=== PATIENT | female | born 1980 | race Caucasian/White ===

== ENCOUNTER 2016-07-28 14:18 | Emergency (ER) | payer OTHER ==
[2016-07-28 15:37] LABS: HEMOGLOBIN 12.2 gm/dl (12.3-15.3); RED BLOOD COUNT 4.36 M/UL (4.00-5.10); WHITE BLOOD COUNT 6.8 K/UL (4.5-11.0)
[2016-07-28 15:41] LABS: BUN/CREATININE RATIO 17 (0-10)
== END 2016-07-28 19:50 | disposition home or self-care (01) ==
LOC: ER1 14:18
PROVIDERS: Preventive Medicine Occupational Medicine
DX: K58.9 Irritable bowel syndrome, unspecified (principal); Z88.5 Allergy status to narcotic agent; Z79.899 Other long term (current) drug therapy
CPT/HCPCS: 36415; 80053; 81001; 85025; 86140; 96374; 96375; 96376; 99284; J2405; J7030; J7050; Q9962

== ENCOUNTER 2020-02-19 11:04 | Emergency (ER) | payer OTHER ==
[~2020-02-19 11:04] MED LIST: DELSYM30 MG/5 ML PO; FLEXERIL 10 MG10 MG PO; IBUPROFEN600 MG PO; K-DUR TAB 20 M20 MEQ PO; LODINE CAP 300300 MG PO; ROBITUSSIN30 MG/5 ML PO; TESSALON PERLE100 MG PO; ZOFRAN ODT 4 MG4 MG PO; ZOFRAN4 MG PO; ZYRTEC10 MG PO
[2020-02-19 11:27] LABS: HEMOGLOBIN 13.9 gm/dl (12.3-15.3); RED BLOOD COUNT 5.03 M/UL (4.00-5.10); WHITE BLOOD COUNT 10.3 K/UL (4.5-11.0)
[2020-02-19 12:13] LABS: BUN/CREATININE RATIO 16 (0-10)
[2020-02-19] MEDS ORDERED: K-DUR TAB 10 M10 MEQ PO (14:54)
[2020-02-19] MEDS ORDERED: ZOFRAN4 MG PO (14:54)
[2020-02-19] MEDS ORDERED: CEFUROXIME500 MG PO (14:54)
== END 2020-02-19 15:15 | disposition home or self-care (01) ==
LOC: ER1 11:04
PROVIDERS: Emergency Medicine
DX: N39.0 Urinary tract infection, site not specified (principal); E87.6 Hypokalemia; R10.12 Left upper quadrant pain; R63.0 Anorexia; F41.9 Anxiety disorder, unspecified; F32.9 Major depressive disorder, single episode, unspecified; Z88.2 Allergy status to sulfonamides; Z90.49 Acquired absence of other specified parts of digestive tract
CPT/HCPCS: 80053; 81001; 82150; 83690; 84703; 85025; 96374; 96375; 99284; J2270; J2405; Q9967

== ENCOUNTER → 2020-02-20 | Outpatient (CLI) | payer OTHER ==
[~2020-02-20] MED LIST changes: +ANTIVERT 12.512.5 MG PO; +BMP Blood Test; +CEFUROXIME500 MG PO; +K-DUR TAB 10 M10 MEQ PO; +ZOFRAN ODT 4 MG4 MG GT
== END ==
LOC: US 13:16
DX: R10.2 Pelvic and perineal pain (principal)
CPT/HCPCS: 76830

== ENCOUNTER 2020-03-24 01:20 | Emergency (ER) | payer OTHER ==
[~2020-03-24 01:20] MED LIST changes: -ANTIVERT 12.512.5 MG PO; -BMP Blood Test; -ZOFRAN ODT 4 MG4 MG GT
[2020-03-24 02:56] LABS: HEMOGLOBIN 14.3 gm/dl (12.3-15.3); RED BLOOD COUNT 5.02 M/UL (4.00-5.10); WHITE BLOOD COUNT 15.6 K/UL (4.5-11.0)
[2020-03-24 03:25] LABS: BUN/CREATININE RATIO 21 (0-10)
[2020-03-24 06:50] LABS: BUN/CREATININE RATIO 22 (0-10)
[2020-03-24] MEDS ORDERED: K-DUR TAB 20 M20 MEQ PO (07:01)
[2020-03-24] MEDS ORDERED: BMP Blood Test (07:01)
[2020-03-24] MEDS ORDERED: ZOFRAN ODT 4 MG4 MG GT (07:05)
[2020-03-24] MEDS ORDERED: ANTIVERT 12.512.5 MG PO (07:05)
== END 2020-03-24 07:30 | disposition home or self-care (01) ==
LOC: ER1 01:20
PROVIDERS: Family Medicine
DX: R11.2 Nausea with vomiting, unspecified (principal); E87.6 Hypokalemia; Z20.822 Contact with and (suspected) exposure to COVID-19
CPT/HCPCS: 70450; 71045; 80048; 80053; 81001; 82550; 82553; 83874; 84484; 85025; 85610; 93005; 96365; 96366; 96375; 99284; J2405; J3480; U0002

== ENCOUNTER 2020-03-29 17:41 | Emergency (ER) | payer OTHER ==
[~2020-03-29 17:41] MED LIST changes: +ANTIVERT 12.512.5 MG PO; +BMP Blood Test; +ZOFRAN ODT 4 MG4 MG GT
[2020-03-30] MEDS ORDERED: ZOFRAN4 MG PO (10:33)
[2020-03-30] MEDS ORDERED: K-DUR TAB 10 M10 MEQ PO (10:33)
== END 2020-03-29 18:19 | disposition left against medical advice (07) ==
LOC: ER1 17:41
DX: R42 Dizziness and giddiness (principal); R11.0 Nausea; R43.8 Other disturbances of smell and taste; Z53.21 Procedure and treatment not carried out due to patient leaving prior to being seen by health care provider

== ENCOUNTER 2020-03-29 20:22 | Emergency (ER) | payer OTHER ==
[2020-03-30 03:52] LABS: BUN/CREATININE RATIO 16 (0-10)
[2020-03-30 04:00] LABS: RED BLOOD COUNT 4.66 M/UL (4.00-5.10); WHITE BLOOD COUNT 11.3 K/UL (4.5-11.0)
[2020-03-30] MEDS ORDERED: ZOFRAN4 MG PO (10:33)
[2020-03-30] MEDS ORDERED: K-DUR TAB 10 M10 MEQ PO (10:33)
== END 2020-03-30 10:57 | disposition home or self-care (01) ==
LOC: ER1 20:22
PROVIDERS: Physician Assistant
DX: R11.2 Nausea with vomiting, unspecified (principal); E87.6 Hypokalemia; R42 Dizziness and giddiness; R43.8 Other disturbances of smell and taste; Z87.01 Personal history of pneumonia (recurrent); Z88.2 Allergy status to sulfonamides; Z20.822 Contact with and (suspected) exposure to COVID-19
CPT/HCPCS: 0240U; 71045; 80053; 82550; 82553; 83874; 83880; 84484; 85025; 85610; 85730; 93005; 99284

== ENCOUNTER 2020-05-31 21:32 | Emergency (ER) | payer OTHER | END 2020-05-31 23:59 | disposition left against medical advice (07) | LOC: ER1 21:32 | DX: Z53.21 Procedure and treatment not carried out due to patient leaving prior to being seen by health care provider (principal) ==

== ENCOUNTER 2021-05-22 15:24 | Inpatient (IN) | payer OTHER ==
[~2021-05-22] VITALS: Ht 162.6 cm; Wt 101.6 kg
[2021-05-22 17:34] LABS: HEMOGLOBIN 13.7 gm/dl (12.3-15.3); RED BLOOD COUNT 4.77 M/UL (4.00-5.10); WHITE BLOOD COUNT 10.8 K/UL (4.5-11.0)
[2021-05-23] MEDS ORDERED: AMITRIPTYLINE100 MG PO (01:18)
[2021-05-23] MEDS ORDERED: BUSPIRONE HCL30 MG PO (01:18)
[2021-05-23] MEDS ORDERED: GABAPENTIN300 MG PO ×2 (01:19→09:14)
[2021-05-23] MEDS ORDERED: TRAMADOL HCL50 MG PO (01:20)
[2021-05-23] MEDS ORDERED: CYCLOBENZAPRINE10 MG PO (01:20)
[2021-05-23] MEDS ORDERED: FAMOTIDINE20 MG PO (01:21)
[2021-05-23] MEDS ORDERED: CHLORTHALIDONE50 MG PO (01:21)
[2021-05-23] MEDS ORDERED: PROZAC40 MG PO (01:24)
[2021-05-23 08:46] LABS: BUN/CREATININE RATIO 13 (0-10)
[2021-05-23] MEDS ORDERED: PROAIR HFA8.5 GM INH (09:15)
[2021-05-23] MEDS ORDERED: OMEPRAZOLE40 MG PO (09:16)
[2021-05-23] MEDS ORDERED: HYDROXYZINE HCL50 MG PO (09:16)
[2021-05-23] MEDS ORDERED: IBUPROFEN800 MG PO (09:17)
[2021-05-23] MEDS ORDERED: IMITREX50 MG PO (09:18)
[2021-05-23] MEDS ORDERED: LIPITOR10 MG PO (09:18)
[2021-05-23] MEDS ORDERED: CETIRIZINE HCL10 MG PO (09:19)
[2021-05-23] MEDS ORDERED: LACTULOSE10 GM/15 M PO (09:20)
[2021-05-23] MEDS ORDERED: AYR SALINE50 ML (09:21)
[2021-05-23 14:27] LABS: BUN/CREATININE RATIO 11 (0-10)
[2021-05-24 09:08] LABS: BUN/CREATININE RATIO 10 (0-10)
[2021-05-24] MEDS ORDERED: POLYETHYLENE GL17 GM PO (13:41)
[2021-05-24] MEDS ORDERED: STIMULANT LAXA1 EACH PO (13:41)
== END 2021-05-24 15:41 | disposition home or self-care (01) | DRG 641 ==
LOC: ER1 15:24 → CDU 20:35 → PROG CARE 20:35
PROVIDERS: Internal Medicine Infectious Disease; Physician Assistant Medical; ADMIT Internal Medicine
DX: E87.6 Hypokalemia (principal); F11.20 Opioid dependence, uncomplicated; I95.2 Hypotension due to drugs; E86.0 Dehydration; T50.2X5A Adverse effect of carbonic-anhydrase inhibitors, benzothiadiazides and other diuretics, initial encounter; Z20.822 Contact with and (suspected) exposure to COVID-19; G43.909 Migraine, unspecified, not intractable, without status migrainosus; R29.6 Repeated falls; H53.149 Visual discomfort, unspecified; K21.9 Gastro-esophageal reflux disease without esophagitis; E66.9 Obesity, unspecified; F41.9 Anxiety disorder, unspecified; F32.A Depression, unspecified; E78.5 Hyperlipidemia, unspecified; M51.36 Other intervertebral disc degeneration, lumbar region; I10 Essential (primary) hypertension; K59.00 Constipation, unspecified; G89.29 Other chronic pain; K58.9 Irritable bowel syndrome, unspecified; Z68.38 Body mass index [BMI] 38.0-38.9, adult; Z90.49 Acquired absence of other specified parts of digestive tract; Z98.890 Other specified postprocedural states; Z83.3 Family history of diabetes mellitus; Z88.2 Allergy status to sulfonamides
CPT/HCPCS: 36415; 36600; 70450; 71045; 80048; 80053; 80307; 81001; 82140; 82436; 82550; 82553; 82607; 82746; 82803; 83735; 83935; 84100; 84132; 84133; 84300; 84439; 84443; 84484; 84703; 85025; 85610; 86140; 93005; 96374; 97162; 97165; 97530; 99285; J1650; J2405; J3480; J7030; U0002

== ENCOUNTER 2021-06-12 15:54 | Inpatient (IN) | payer OTHER ==
[~2021-06-12] VITALS: Ht 162.6 cm; Wt 105.4 kg
[~2021-06-12 15:54] MED LIST changes: +AMITRIPTYLINE100 MG PO; +AYR SALINE50 ML; +BUSPIRONE HCL30 MG PO; +CETIRIZINE HCL10 MG PO; +CHLORTHALIDONE50 MG PO; +CYCLOBENZAPRINE10 MG PO; +FAMOTIDINE20 MG PO; +GABAPENTIN300 MG PO; +HYDROXYZINE HCL50 MG PO; +IBUPROFEN800 MG PO; +IMITREX50 MG PO; +LACTULOSE10 GM/15 M PO; +LIPITOR10 MG PO; +OMEPRAZOLE40 MG PO; +POLYETHYLENE GL17 GM PO; +PROAIR HFA8.5 GM INH; +PROZAC40 MG PO; +STIMULANT LAXA1 EACH PO; +TRAMADOL HCL50 MG PO
[2021-06-12 16:36] LABS: HEMOGLOBIN 14.5 gm/dl (12.3-15.3); RED BLOOD COUNT 5.08 M/UL (4.00-5.10); WHITE BLOOD COUNT 15.7 K/UL (4.5-11.0)
[2021-06-13 06:21] LABS: HEMOGLOBIN 13.1 gm/dl (12.3-15.3); RED BLOOD COUNT 4.66 M/UL (4.00-5.10)
[2021-06-13 06:28] LABS: WHITE BLOOD COUNT 8.3 K/UL (4.5-11.0)
[2021-06-13 06:46] LABS: BUN/CREATININE RATIO 17 (0-10)
[2021-06-13] MEDS ORDERED: AMITRIPTYLINE100 MG PO (11:56)
[2021-06-13] MEDS ORDERED: CHLORTHALIDONE50 MG PO (11:57)
[2021-06-13] MEDS ORDERED: CYCLOBENZAPRINE10 MG PO (11:58)
[2021-06-13] MEDS ORDERED: TRAMADOL HCL50 MG PO (20:00)
[2021-06-13] MEDS ORDERED: BUSPIRONE HCL30 MG PO (20:01)
[2021-06-14 03:42] LABS: HEMOGLOBIN 12.4 gm/dl (12.3-15.3); RED BLOOD COUNT 4.37 M/UL (4.00-5.10); WHITE BLOOD COUNT 8.9 K/UL (4.5-11.0)
[2021-06-15 11:09] LABS: HEMOGLOBIN 13.2 gm/dl (12.3-15.3); RED BLOOD COUNT 4.6 M/UL (4.00-5.10); WHITE BLOOD COUNT 9.1 K/UL (4.5-11.0)
[2021-06-15 11:31] LABS: BUN/CREATININE RATIO 13 (0-10)
[2021-06-15 16:50] LABS: BUN/CREATININE RATIO 12 (0-10)
[2021-06-15 22:54] LABS: ADENOVIRUS F 40/41 Not Detected (Negative); ASTROVIRUS Not Detected (Negative); CAMPYLOBACTER Not Detected (Negative); CRYPTOSPORIDIUM Not Detected (Negative); E.COLI 0157 Not Detected (Negative); ENTAMOEBA HISTOLYTICA Not Detected (Negative); ENTEROAGGREGATIVE E.COLI (EAEC Not Detected (Negative); ENTEROPATHOGENIC E.COLI (EPEC) Not Detected (Negative); ENTEROTOXIGENIC E.COLI (ETEC) Not Detected (Negative); GIARDIA LAMBLIA Not Detected (Negative); NOROVIRUS GI/GII Not Detected (Negative); PLESIOMONAS SHIGELLOIDES Not Detected (Negative); ROTOVIRUS A Not Detected (Negative); SALMONELLA Not Detected (Negative); SAPOVIRUS Not Detected (Negative); SHIG/ENTEROINVAS.ECOLI (EIEC) Not Detected (Negative); SHIGA-LIK TOX.PRO.E.COLI (STEC Not Detected (Negative); VIBRIO Not Detected (Negative); VIBRIO CHOLERAE Not Detected (Negative); YERSINIA ENTEROCOLITICA Not Detected (Negative)
[2021-06-16 08:31] LABS: CLOSTRIDIUM DIFFICILE TOX A/B Not Detected (Negative)
[2021-06-16] MEDS ORDERED: K-TAB ER20 MEQ PO (16:52)
== END 2021-06-16 17:45 | disposition home or self-care (01) | DRG 392 ==
LOC: ER1 15:54 → MED SURG 4 18:11 → CDU 18:11 → MED SURG 4 19:20
PROVIDERS: Preventive Medicine Occupational Medicine; ADMIT Internal Medicine
DX: A08.4 Viral intestinal infection, unspecified (principal); N17.9 Acute kidney failure, unspecified; E87.1 Hypo-osmolality and hyponatremia; E87.6 Hypokalemia; E86.0 Dehydration; Z20.822 Contact with and (suspected) exposure to COVID-19; F41.9 Anxiety disorder, unspecified; F32.A Depression, unspecified; E66.01 Morbid (severe) obesity due to excess calories; E78.5 Hyperlipidemia, unspecified; G62.9 Polyneuropathy, unspecified; K21.9 Gastro-esophageal reflux disease without esophagitis; M25.562 Pain in left knee; M25.561 Pain in right knee; Z90.49 Acquired absence of other specified parts of digestive tract; Z98.890 Other specified postprocedural states; Z83.6 Family history of other diseases of the respiratory system; Z79.1 Long term (current) use of non-steroidal anti-inflammatories (NSAID); Z88.2 Allergy status to sulfonamides; Z68.37 Body mass index [BMI] 37.0-37.9, adult
CPT/HCPCS: 0240U; 36415; 80048; 80053; 81001; 83605; 83631; 83690; 83735; 84100; 84132; 84703; 85025; 85652; 86140; 86710; 87086; 87177; 87209; 87449; 87507; 96374; 96376; 99285; C9113; G0378; J1650; J2405; J2543; J3480; Q9967

== ENCOUNTER 2021-06-27 15:52 | Emergency (ER) | payer OTHER ==
[~2021-06-27 15:52] MED LIST changes: +K-TAB ER20 MEQ PO
[2021-06-28] MEDS ORDERED: K-TAB ER20 MEQ PO (20:01)
== END 2021-06-27 22:11 | disposition left against medical advice (07) ==
LOC: ER1 15:52
DX: R11.10 Vomiting, unspecified (principal); E78.5 Hyperlipidemia, unspecified; K21.9 Gastro-esophageal reflux disease without esophagitis; Z88.2 Allergy status to sulfonamides
CPT/HCPCS: 99282

== ENCOUNTER 2021-06-28 14:58 | Emergency (ER) | payer OTHER ==
[2021-06-28 15:44] LABS: HEMOGLOBIN 12.2 gm/dl (12.3-15.3); RED BLOOD COUNT 4.26 M/UL (4.00-5.10); WHITE BLOOD COUNT 8.4 K/UL (4.5-11.0)
[2021-06-28 16:07] LABS: BUN/CREATININE RATIO 16 (0-10)
[2021-06-28] MEDS ORDERED: K-TAB ER20 MEQ PO (20:01)
== END 2021-06-28 20:14 | disposition home or self-care (01) ==
LOC: ER1 14:58
PROVIDERS: Emergency Medicine
DX: E87.6 Hypokalemia (principal); R10.10 Upper abdominal pain, unspecified; Z88.2 Allergy status to sulfonamides
CPT/HCPCS: 80053; 81001; 83690; 84703; 85025; 93005; 99284; J1885; J2405; Q9967

== ENCOUNTER 2021-07-17 10:32 | Emergency (ER) | payer OTHER ==
[2021-07-17 12:50] LABS: HEMOGLOBIN 13.6 gm/dl (12.3-15.3); RED BLOOD COUNT 4.82 M/UL (4.00-5.10); WHITE BLOOD COUNT 12.2 K/UL (4.5-11.0)
[2021-07-17 14:18] LABS: BUN/CREATININE RATIO 21 (0-10)
[2021-07-17] MEDS ORDERED: ZOFRAN ODT 4 MG4 MG GT (14:47)
== END 2021-07-17 17:19 | disposition home or self-care (01) ==
LOC: ER1 10:32
PROVIDERS: Physician Assistant
DX: R11.2 Nausea with vomiting, unspecified (principal); E87.6 Hypokalemia; R10.9 Unspecified abdominal pain; K21.9 Gastro-esophageal reflux disease without esophagitis; I10 Essential (primary) hypertension; Z90.49 Acquired absence of other specified parts of digestive tract; Z88.2 Allergy status to sulfonamides
CPT/HCPCS: 80053; 81001; 83690; 84703; 85025; 96374; 96375; 96376; 99284; J1885; J2405

== ENCOUNTER → 2021-11-03 | Outpatient (CLI) | payer OTHER | LOC: MAMO 13:00 | DX: Z12.31 Encounter for screening mammogram for malignant neoplasm of breast (principal) | CPT/HCPCS: 77063; 77067 ==